=== PATIENT | female | born 1980 | race Caucasian/White ===

== ENCOUNTER 2017-05-07 09:31 | Emergency (ER) | payer OTHER ==
--- NOTE | 2017-05-07 09:50 | C.PDOC ---
History Of Present Illness 36 y/o female presents to the ED with complaints of new onset pain to right 5th finger since this morning. Pt states she may have struck her hand on cast iron bed while sleeping. Pain is worse at the base of the finger and with movement. Pt denies prior hand pain symptoms. Pt right handed. Denies knuckle or palm pain , weakness, numbness, fever or any other complaints. NEW ONSET PAIN R 5 FINGER SINCE THIS MORNING. PS MAY HAVE STRUCK HAND ON CAST IRON BED WHILE SLEEPING. DENIES PRIOR HAND PAIN SX. PAIN WORSE BASE OF FINGER, WORSE W MOVEMENT. R HANDED. DENIES KNUCKLE, PALM PAIN EXAM MILD DIST NONTOXIC EXT R HAND LIMITED ROM R 5 FINGER W DIFFUSE TEND. ?ROTATIONAL DEFORM. NO METACARPAL TEND. WRIST AROM, NONTEND. SKIN NEG NEURO INTACT Time Seen by Provider: 05/07/17 09:50 Chief Complaint (Nursing): Upper Extremity Problem/Injury History Per: Patient History/Exam Limitations: no limitations Onset/Duration Of Symptoms: Hrs Current Symptoms Are (Timing): Still Present Quality: "Pain" Severity: Moderate Exacerbating Factor(s): Movement Recent travel outside of the [place]: No Past Medical History Reviewed: Historical Data, Nursing Documentation, Vital Signs Vital Signs: Last Vital Signs Temp 97.8 F 05/07/17 09:34 Pulse 81 05/07/17 09:34 Resp 20 05/07/17 09:34 BP 119/76 05/07/17 09:34 Pulse Ox 100 05/07/17 10:39 Family History: States: Unknown Family Hx - Social History Hx Alcohol Use: No Hx Substance Use: No - Immunization History Hx Tetanus Toxoid Vaccination: Yes Hx Influenza Vaccination: Yes Hx Pneumococcal Vaccination: Yes Review Of Systems Constitutional: Negative for: Fever Musculoskeletal: Positive for: Other (right 5th finger pain) Neurological: Negative for: Weakness, Numbness Physical Exam - Physical Exam Appears: Non-toxic, In Acute Distress (mild discomfort) Skin: Warm, Dry, No Rash, No Ecchymosis Extremity: Capillary Refill (<2 seconds), Deformity (Questionable rotational deformity.), Other (Limited ROM right 5th finger with diffuse tenderness. No metacarpal tenderness. Wrist AROM, nontender.) Pulses: Right Radial: Normal Neurological/Psych: Oriented x3, Normal Speech, Normal Cognition, Normal Motor, Normal Sensation ED Course And Treatment O2 Sat by Pulse Oximetry: 100 (room air) Pulse Ox Interpretation: Normal - Other Rad r hand X-Ray: Interpreted by Me (?FX BASE 5TH METACARPAL 1 VIEW ONLY.) Medical Decision Making Medical Decision Making: Plan: tylenol, motrin, XR right hand Disposition Counseled Patient/Family Regarding: Studies Performed, Diagnosis, Need For Followup - Disposition [facility]errals: [facility] [Outside] [facility] [Outside] Disposition: HOME/ ROUTINE Disposition Time: 10:50 Condition: IMPROVED Additional Instructions: MOTRIN/TYLENOL NEEDED FOR PAIN. FOLLOW UP HAND SURGERY IF PERSIST PAIN 1 WEEK Forms: [facility] (Congolese), General Discharge Instructions, Work Excuse - Clinical Impression Clinical Impression: Hand pain - Scribe Statement The provider has reviewed the documentation as recorded by the Scribaliyah Gardner Provider Attestation: All medical record entries made by the Scribe were at my direction and personally dictated by me. I have reviewed the chart and agree that the record accurately reflects my personal performance of the history, physical exam, medical decision making, and the department course for this patient. I have also personally directed, reviewed, and agree with the discharge instructions and disposition. Orthopedic Care Application Of:: Ulnar Gutter Splint (APPLIED BY CRANE MECHANIC)
[2017-05-07 11:05] VITALS: BP 115/70; PULSE 71; RESP 18; TEMP 98; O2SAT 98
--- NOTE | 2017-05-07 11:16 | RAD ---
PROCEDURE: Right Hand Radiographs. HISTORY: Pain COMPARISON: None. FINDINGS: BONES: Bone alignment and mineralization are normal. No acute displaced fracture or bone destruction JOINTS: Normal. SOFT TISSUES: Normal. OTHER FINDINGS: None. IMPRESSION: No acute displaced fracture or dislocation.
== END 2017-05-07 11:05 | disposition home or self-care (01) ==
LOC: C.ER 09:31
DX: M79.641 Pain in right hand (principal)